=== PATIENT | female | born 1960 | race Caucasian/White ===

== ENCOUNTER 2024-10-31 19:14 | Inpatient (IN) | payer OTHER ==
[2024-10-31 20:05] VITALS: BMI 23.0
[2024-10-31] MEDS ORDERED: BISMUTH SUBSALICYLATE 524 MG/30 ML PO PRN (20:28)
[2024-10-31] MEDS ORDERED: NICOTINE POLACRILEX 4 MG GUM BUC PRN (20:28)
[2024-10-31] MEDS ORDERED: BENZONATATE 200 MG CAPSULE PO PRN (20:28)
[2024-10-31] MEDS ORDERED: BENZOCAINE/MENTHOL (CHLORASEPTIC ) LOZENGE MM PRN (20:28)
[2024-10-31] MEDS ORDERED: guaiFENesin 600 MG TABLET.ER (FP) PO PRN (20:28)
[2024-10-31] MEDS ORDERED: POLYETHYLENE GLYCOL (HEALTHYLAX) 3350 17 GM PACKET PO PRN (20:28)
[2024-10-31] MEDS ORDERED: DICYCLOMINE HCL 10 MG CAPSULE PO PRN (20:28)
[2024-10-31] MEDS ORDERED: hydrOXYzine PAMOATE 25 MG CAPSULE (FP) PO PRN (20:28)
[2024-10-31] MEDS ORDERED: ACETAMINOPHEN 325 MG TABLET (FP) PO PRN (20:28)
[2024-10-31] MEDS ORDERED: LOPERAMIDE HCL 2 MG CAPSULE PO PRN (20:28)
[2024-10-31] MEDS ORDERED: NALOXONE (NARCAN) HCL 4 MG/0.1 ML SPRAY NS PRN (20:28)
[2024-10-31] MEDS ORDERED: MAGNESIUM HYDROX 2400MG/30ML ORAL SUSPENSION 30 ML CUP PO PRN (20:28)
[2024-10-31] MEDS ORDERED: MELATONIN 5 MG TABLETS ONE (22:33)
[2024-10-31] MEDS ORDERED: IBUPROFEN 600 MG TABLET (FP) PO ONE (22:34)
[2024-10-31] MEDS: THIAMINE 100 MG TABLET PO SCH (22:36)
[2024-10-31] MEDS: IBUPROFEN 600 MG TABLET (FP) PO PRN (22:36)
[2024-10-31] MEDS: MELATONIN 5 MG TABLETS PO SCH (22:36)
[2024-11-01] MEDS ORDERED: ALBUTEROL SO4 HFA INHALER IH PRN (06:37)
[2024-11-01 09:27] LABS: HEMATOCRIT 36.3 % (32.4-45.2); HEMOGLOBIN 12.1 GM/dL (10.7-15.3); MCH 30.8 pg (25.7-33.7); MCHC 33.4 g/dl (32.0-36.0); MEAN CELL VOLUME 92.4 fl (80-96); MEAN PLT VOLUME 8.1 fl (7.5-11.1); PLATELET COUNT 296 10^3/uL (134-434); RBC 3.92 M/mm3 (3.60-5.2); RDW 14.4 % (11.6-15.6); WHITE BLOOD COUNT 9.3 K/mm3 (4.0-10.0)
[2024-11-01] MEDS: NICOTINE 21 MG/24 HOURS TOPICAL PATCH TD SCH (09:42)
[2024-11-01] MEDS: PRENATAL VITAMINS W/ FOLIC ACID TABLET (FP) PO SCH (09:42)
[2024-11-01 09:44] LABS: CHLORIDE 107 mmol/L (98-107); POTASSIUM 3.7 mmol/L (3.5-5.1); SODIUM 141 mmol/L (136-145)
[2024-11-01 09:55] LABS: ALBUMIN 3.2 g/dl (3.4-5.0); ANION GAP 8 mmol/L (4-13); BLOOD UREA NITROGEN 13.5 mg/dL (7-18); CALCIUM 9.1 mg/dL (8.5-10.1); CO2 26 mmol/L (21-32); GLUCOSE,RANDOM 106 mg/dL (74-106)
[2024-11-01 09:57] LABS: CREATININE 0.6 mg/dL (0.55-1.3); SGOT/AST 50 U/L (15-37); SGPT/ALT 27 U/L (13-61)
[2024-11-01 09:59] LABS: BILIRUBIN,TOTAL 0.4 mg/dL (0.2-1)
[2024-11-01 10:00] LABS: TOT PROT 7.2 g/dl (6.4-8.2)
[2024-11-01 10:01] LABS: ALK PHOS 197 U/L (45-117)
[2024-11-02] MEDS: NALTREXONE HCL 50 MG TABLET PO SCH (10:21)
[2024-11-02] MEDS: BUDESONIDE/FORMETEROL FUMARATE 160/4.5 mcg INHALER IH SCH (10:21)
[2024-11-02] MEDS: ONDANSETRON *ODT* 4 MG TABLET SL PRN (13:20)
[2024-11-02] MEDS: IBUPROFEN 400 MG TABLET (FP) PO PRN (21:51)
[2024-11-03 09:15] VITALS: RESP 16
[2024-11-03] MEDS: MAG HYDROX/AL HYDROX/SIMETH 30 ML UNIT-DOSE CUP PO PRN (09:34)
[2024-11-03 12:51] VITALS: BP 118/68; PULSE 74; TEMP 97.7
== END 2024-11-03 15:05 | disposition other institution (70) | DRG 897 ==
LOC: YASAS 19:14 → Y6N 22:01
PROVIDERS: ADMIT Allergy & Immunology; ATTEND Allergy & Immunology
PROC: HZ2ZZZZ Detoxification Services for Substance Abuse Treatment (ICD-10-PCS; principal; 2024-10-31)
DX: F10.230 Alcohol dependence with withdrawal, uncomplicated (principal); F14.10 Cocaine abuse, uncomplicated; F17.210 Nicotine dependence, cigarettes, uncomplicated; F10.282 Alcohol dependence with alcohol-induced sleep disorder; F19.24 Other psychoactive substance dependence with psychoactive substance-induced mood disorder; J45.20 Mild intermittent asthma, uncomplicated; Z98.84 Bariatric surgery status; Z99.89 Dependence on other enabling machines and devices; Z88.0 Allergy status to penicillin
CPT/HCPCS: 36415; 80053; 80305; 80307; 85027; 86780; 87811; 93005; 93010; Q0162